=== PATIENT | female | born 1950 | race Caucasian/White ===

== ENCOUNTER 2018-11-02 18:32 | Observation (INO) | payer MEDICARE ==
--- NOTE | 2018-11-02 18:59 | RAD ---
CHEST ONE VIEW: 11/02/18 INDICATION: Cough and runny nose. COMPARISON: Prior exam dated 12/13/16. FINDINGS: There is stable cardiomegaly. Lungs are clear. No pleural effusions or pneumothorax is evident. No ac mady osseous abnormalities. IMPRESSION: No acute abnormality. POS: [facility]
[2018-11-02 19:26] LABS: #Basophils 0.1 thou/uL (0.0-0.2); #Eosinphils 0.1 thou/uL (0.0-0.7); #Lymphocytes 4.2 thou/uL (1.20-3.40); #Monocytes 0.6 thou/uL (0.11-0.59); #Neutrophils 7.8 thou/uL (1.40-6.50); %Basophils 0.8 % (0.0-1.0); %Eosinophils 0.9 % (0.0-10.0); %Lymphocytes 32.9 % (21.0-51.0); %Monocytes 4.9 % (0.0-10.0); %Neutrophils 60.4 % (42.0-75.0); Hemoglobin 16.1 g/dL (12.0-16.0); Mean Corpuscular Hemoglobin 30.2 pg (27.0-31.0); Mean Corpuscular Volume 94.3 fL (78.0-98.0); Mean Platelet Volume 9.9 fL (7.4-10.4); Platelet Count 243 thou/uL (130-400); RBC Distribution Width 13.1 % (11.5-14.5); Red Blood Cell (RBC) Count 5.34 mill/uL (4.20-5.40); White Blood Cell (WBC) Count 12.8 thou/uL (4.8-10.8)
[2018-11-02] MEDS ORDERED: Ondansetron PF 4 MG/2 ML Vial ONE (19:42)
[2018-11-02 19:49] LABS: ALT (SGPT) 21 U/L (8-55); AST (SGOT) 19 U/L (5-34); Albumin 4.3 g/dL (3.4-4.8); Alkaline Phosphatase 123 U/L (40-150); Anion Gap 16 mmol/L (10-20); BUN (Urea Nitrogen) 9 mg/dL (9.8-20.1); Bilirubin, Total 0.4 mg/dL (0.2-1.2); Calc. Creatinine Clearance 0 mL/min (70-130); Calcium 9.9 mg/dL (7.8-10.44); Carbon Dioxide 22 mmol/L (23-31); Chloride 104 mmol/L (98-107); Estimated GFR-MDRD 61; Globulin 3.1 g/dL (2.4-3.5); Glucose 305 mg/dL (80-115); Protein, Total 7.4 g/dL (6.0-8.3); Sodium 138 mmol/L (136-145)
--- NOTE | 2018-11-02 20:25 | CT ---
CT OF THE BRAIN WITHOUT CONTRAST: 11/02/18 INDICATION: History of dizziness. COMPARISON: None. FINDINGS: The septum pellucidum and third ventricle are midline. There is remote appearing lacunar infarct invo lving the right cerebellar hemisphere on image 6 of series 2. There is suspected Virchow-Christophe space involving the inferior aspect of the right globus pallidus. No definite acute infarct, hemorrhage, o r hydrocephalus is present. Skull and extracranial soft tissues appear within normal limits. IMPRESSION: 1. Remote appearing lacunar infarct involving the right inferior cerebellar hemisphere. 2. No acute intracranial abnormality. POS: [facility]
[2018-11-02] MEDS ORDERED: Aspirin Chewable 81 MG TAB ONE (21:04)
[2018-11-02] MEDS ORDERED: Meclizine HCl 25 MG TAB ONE (21:35)
[2018-11-02] MEDS ORDERED: Non-Formulary Item 1 EACH (Ipratropium/Albuterol Sulfate [Combivent Respimat] 1 PUFF) INH PRN (22:34)
[2018-11-02 22:57] LABS: Troponin I Less than 0.010 ng/mL (< 0.028)
--- NOTE | 2018-11-02 23:57 | HP ---
PRIMARY CARE PHYSICIAN: Dr. Edward. CHIEF COMPLIANT: Dizziness and nausea for some time. HISTORY OF PRESENT ILLNESS: The patient is a 68-year-old female, name Ms. Nadia Kinney, with past medical history of coronary artery disease, status post stenting; hypertension; diabetes; COPD, who presents to the emergency department for having feeding output, dizziness, and then also having nausea, which has been worsening since Tuesday. The patient reports feeling of dizziness has been going on for a while and she has been trying to get into her primary care physician. The patient called her primary care physician and was told to come to the ER. The patient denies any falls, but reports that whenever she moves or when she tries to get up, she feels as if she is spinning. The patient denies any lightheadedness. The patient reports that she is being having feeling of nausea and has not been able to take her medications. The patient has not taken her blood pressure medication or her diabetes medication. 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 Ayon and she saw him last in 2015 or 2016. The patient at this point denies any chest pain, shortness of breath, abdominal pain, nausea, or vomiting. The patient also reported that she has been having these headaches on and off. MEDICATIONS: The patient's current medication includes: 1. Hydrochlorothiazide. 2. Simvastatin. 3. Glyburide. 4. Metformin. 5. Furosemide. 6. Lisinopril. 7. Trazodone. 8. Plavix. 9. Amlodipine. 10. Carvedilol. 11. Amitriptyline. 12. Ranitidine. 13. Loratadine. PAST MEDICAL HISTORY: Includes: 1. Diabetes. 2. Hypertension. 3. Coronary artery disease with stenting and acid reflux. ALLERGIES: DILAUDID. FAMILY HISTORY: Includes mother having heart disease. SOCIAL HISTORY: The patient smokes 1 to 2 pack of cigarettes per day. Denies any alcohol or illicit drugs. PAST SURGICAL HISTORY: Includes cardiac stent and history of hysterectomy. REVIEW OF SYSTEMS: A 10-point review of systems negative other than mentioned in the HPI. PHYSICAL EXAMINATION: VITAL SIGNS: Blood pressure 177/92, pulse 67, respirations 16, 99% O2 saturation on room air, temperature 98.6. CONSTITUTIONAL: The patient is alert and does not appear to be in any acute distress. HEAD: Atraumatic. EARS AND NOSE: No discharge or bleeding noted. MOUTH: No exudate noted. NECK: No lymphadenopathy noted. CARDIOVASCULAR: Regular rate and rhythm. No murmur, rubs, or gallops. RESPIRATION: Clear bilaterally. No wheezes heard. ABDOMEN: Soft and nontender. Bowel sounds are positive. EXTREMITIES: No edema noted. NEUROLOGIC: Cranial nerve 2 through 12 grossly intact and strength 5/5 bilaterally. Sensation intact in all four extremities. SKIN: Mild rash noted on her lower extremity, does seem to be excoriation. LABORATORY DATA: White blood cell count 12.8, hemoglobin 16.1, hematocrit 50.4, platelets 243. Chemistry; sodium 138, potassium 4, chloride 104, carbon dioxide 22, BUN 9, creatinine 0.92, glucose 305. Troponin negative. BNP 92.6. IMAGING STUDIES: EKG per ER, no ST-segment elevation noted. The patient's chest x-ray appeared to be negative for any acute abnormalities. CT head of the brain. Impression, remote appearing lacunar infarct involving the right inferior cerebellar hemisphere. No acute intracranial abnormalities noted. ASSESSMENT AND PLAN: 1. Dizziness. The patient's dizziness appeared to be peripheral in etiology suspect benign paroxysmal positional vertigo. Central neurological etiology could not be ruled out given the finding on the CT brain. CT brain negative for any acute CVA . The patient will be admitted for TIA workup. We will order MRI of the brain, echocardiogram, and ultrasound carotid, PT/OT ordered. We will continue diet as the patient has been tolerating diet. The patient was given aspirin in the ER, will continue aspirin and Plavix. The patient was given aspirin in the ER. The patient is already on Plavix. The patient is not a candidate for tPA at this point given the timeline of her symptoms. We will continue meclizine p.r.n. for her dizziness. 2. Accelerated hypertension. The patient's blood pressure on arrival was 240/86 likely due to noncompliance of her medications as she has not been taking her blood pressure medications. The patient's blood pressure was treated in the ER and her repeat blood pressure was 177/92. We will allow for permissive hypertension at this point, trying to rule out TIA. 3. Hyperglycemia with diabetes. The patient's blood glucose 300 on arrival likely due to not taking her medications at home. We will start SSI, check A1c, lipid panel and TSH in the morning. 4. Coronary artery disease with history of stenting. Continue home medications including statin and Plavix. 5. Leukocytosis. Likely reactive. Trend. Does not appear to be infectious on admission. 6. The patient is DNR. The patient's code status discussed, son present at bedside. She agreed that she wanted to be DNR. Paperwork completed. 7. Medical power of employment attorney: The patient will like her sister to be the medical power of employment attorney. 8. DVT prophylaxis addressed. Job ID: [id number] MTDD
[2018-11-03] MEDS ORDERED: Ondansetron ODT 4 MG TAB SL PRN (01:21)
[2018-11-03] MEDS ORDERED: Sodium Chloride 0.9% 1,000 ML IV SCH (01:21)
[2018-11-03] MEDS ORDERED: Acetaminophen 325 MG TAB PO PRN (01:21)
[2018-11-03] MEDS ORDERED: Ondansetron PF 4 MG/2 ML Vial IVP PRN (01:21)
[2018-11-03 01:54] VITALS: BMI 38.9
[2018-11-03] MEDS ORDERED: Meclizine HCl 12.5 MG TAB PO PRN (01:55)
[2018-11-03 02:50] LABS: Troponin I Less than 0.010 ng/mL (< 0.028)
[2018-11-03] MEDS ORDERED: Dextrose 5% in Water 1,000 ML IV PRN (06:31)
[2018-11-03] MEDS ORDERED: Dextrose 50% Abboject 50 ML SYRINGE IVP PRN (06:31)
[2018-11-03] MEDS: Insulin Regular 300 UNITS/3 ML VIAL SC PRN ×3 (06:40→17:50)
[2018-11-03 07:47] LABS: #Basophils 0.1 thou/uL (0.0-0.2); #Eosinphils 0.2 thou/uL (0.0-0.7); #Lymphocytes 4.7 thou/uL (1.20-3.40); #Monocytes 0.7 thou/uL (0.11-0.59); %Basophils 0.8 % (0.0-1.0); %Eosinophils 1.2 % (0.0-10.0); %Lymphocytes 36.8 % (21.0-51.0); %Monocytes 5.8 % (0.0-10.0); %Neutrophils 55.4 % (42.0-75.0); Hemoglobin 15.7 g/dL (12.0-16.0); Mean Corpuscular HGB CONC 32.4 g/dL (32.0-36.0); Mean Corpuscular Hemoglobin 30.8 pg (27.0-31.0); Mean Platelet Volume 9.4 fL (7.4-10.4); Platelet Count 230 thou/uL (130-400); RBC Distribution Width 13.1 % (11.5-14.5); White Blood Cell (WBC) Count 12.7 thou/uL (4.8-10.8)
[2018-11-03 08:08] LABS: Cardiac Risk 5.6 (Less than 4.5)
[2018-11-03 08:09] LABS: ALT (SGPT) 22 U/L (8-55); AST (SGOT) 16 U/L (5-34); Alkaline Phosphatase 115 U/L (40-150); Anion Gap 14 mmol/L (10-20); BUN (Urea Nitrogen) 11 mg/dL (9.8-20.1); Bilirubin, Total 0.5 mg/dL (0.2-1.2); Calc. Creatinine Clearance 104 mL/min (70-130); Calcium 9.4 mg/dL (7.8-10.44); Carbon Dioxide 25 mmol/L (23-31); Chloride 103 mmol/L (98-107); Estimated GFR-MDRD 68; Globulin 2.9 g/dL (2.4-3.5); Glucose 229 mg/dL (80-115); Potassium 3.8 mmol/L (3.5-5.1); Protein, Total 6.9 g/dL (6.0-8.3); Sodium 138 mmol/L (136-145)
[2018-11-03] MEDS ORDERED: Aspirin 325 MG TAB PO SCH (09:00)
[2018-11-03] MEDS ORDERED: Prevnar 13-Val Conj/PF 0.5 ML SYRINGE IM ONE (09:00)
[2018-11-03] MEDS ORDERED: Famotidine/PF 20 mg/2ml Vial SLOW IVP SCH (09:00)
--- NOTE | 2018-11-03 09:55 | ULT ---
CAROTID ULTRASOUND WITH COLLIER SCALE AND DOPPLER DUPLEX COLOR FLOW IMAGING SPECTRAL ANALYSIS PERFORMED: DATE: 11/03/18 CLINICAL INDICATION: Possible TIA, stroke. FINDINGS: There is scattered mild atherosclerotic calcification of the carotid arteries. PEAK SYSTOLIC VELOCITY (CM/S): Right CCA 65 Left CCA 66 Right ICA 57 Left ICA 83 There is antegrade flow within the visualized bilateral vertebral arteries. IMPRESSION: 1. No hemodynamically significant stenosis of the right internal carotid artery. 2. No hemodynamically significant stenosis of the left internal carotid artery. POS: [facility]
[2018-11-03] MEDS: Clopidogrel Bisulfate 75 MG TAB PO SCH (10:10)
[2018-11-03] MEDS: Aspirin 81 mg Enteric Coated Tablet PO SCH (10:10)
--- NOTE | 2018-11-03 11:50 | MRI ---
BRAIN MRI WITHOUT CONTRAST: Indication: TIA, dizziness. FINDINGS: There is no acute territorial infarction, mass effect, or midline shift. No parenchymal hemorrhagic s usceptibility. There is mild chronic ischemic disease involving the cerebral white matter. There is a focal T2 hyperintense FLAIR hypointense oval signal alteration at the inferior right lenti form nucleus which may relate to perivascular space versus lacunar infarction. There is a partially e mpty sella. Minimal mucosal thickening is seen within the paranasal sinuses and there is trace right mastoid fluid. IMPRESSION: 1. No acute intracranial abnormalities. 2. Mild chronic ischemic disease of the cerebral white matter. POS: [facility]
--- NOTE | 2018-11-03 15:43 | PDOC.PN ---
- Subjective Encounter Start Date: 11/03/18 Encounter Start Time: 15:40 Subjective: Patient states she continues with mild dizziness on occasion when standing -: it has gotten significantly better. Reports sinus congestion thats improved -: Denies any headaches. Complains of diarrhea x 2, each time after eating. She states this is chronic for her. Often suffers from diarrhea and diverticulitis. At present she denies any abdominal pain. No bloody stools. Denies any fevers or chills. Reports feeling sob with exertion and states her PCP was primarily concerned about her heart and that was the reason why she advised her to come to the ED. The patient denies any chest pain at present or since admission. She is known to Dr. Ayon but has no follow-up scheduled at this time. Per previous records she has two vessel CAD with previous stenting. Her BNP is 92.6. - Objective Resuscitation Status - Order Detail: 11/02/18 22:36 Resuscitation Status Routine Resuscitation Status: DNAR: NO Resuscitation Discussed with: Pt and son. Pt understood and request DNAR Vital Signs & Weight: Vital Signs (12 hours) Temp Pulse Resp BP Pulse Ox 11/03/18 11:36 97.5 F L 77 20 148/65 H 97 11/03/18 11:24 97.5 F L 77 20 148/65 H 97 11/03/18 07:35 97.5 F L 61 18 190/79 H 94 L 11/03/18 04:00 98.4 F 68 16 204/84 H 90 L Weight Weight 220 lb I&O: 11/02/18 11/03/18 11/04/18 06:59 06:59 06:59 Intake Total 500 250 Balance 500 250 Result Diagrams: 11/03/18 07:32 11/03/18 07:32 Additional Labs: Accuchecks 11/03/18 11/03/18 10:42 06:19 POC Glucose 242 H 241 H Phys Exam - Physical Examination Constitutional: NAD HEENT: PERRLA, moist MMs, sclera anicteric, oral pharynx no lesions No nystagmus, EOM normal. Neck: no JVD, supple, full ROM Respiratory: clear to auscultation bilateral Cardiovascular: RRR Gastrointestinal: soft, non-tender, no distention, positive bowel sounds Musculoskeletal: no edema, pulses present Neurological: normal sensation, moves all 4 limbs Psychiatric: normal affect, A&O x 3 Skin: no rash, normal turgor Dx/Plan (1) Diverticulosis Code(s): K57.90 - DVRTCLOS OF INTEST, PART UNSP, W/O PERF OR ABSCESS W/O BLEED Status: Acute (2) Chronic diarrhea Code(s): K52.9 - NONINFECTIVE GASTROENTERITIS AND COLITIS, UNSPECIFIED Status : Acute (3) Coronary artery disease Code(s): I25.10 - ATHSCL HEART DISEASE OF [place] CORONARY ARTERY W/O ANG PCTRS Status: Chronic (4) Diabetes type 2, controlled Code(s): E11.9 - TYPE 2 DIABETES MELLITUS WITHOUT COMPLICATIONS Status: Chronic (5) Hypertension Code(s): I10 - ESSENTIAL (PRIMARY) HYPERTENSION Status: Chronic (6) Obesity (BMI 30-39.9) Code(s): E66.9 - OBESITY, UNSPECIFIED Status: Chronic - Plan cont current plan of care Improvement with vertigo. Tolerating PO intake. -: MRI Brain with no acute changes and Carotid US negative. -: SOB on exertion, worse from baseline. Awaiting Echo. -: BNP 92.6, Troponin neg x 3 on admission. -: Patient for discharge on Antivert and increase Coreg 6.25 mg daily. Discharge pending results of Echo. Patients case discussed with Dr. Eldridge.
[2018-11-03] MEDS ORDERED: Carvedilol 3.125 MG TAB PO SCH (17:00)
[2018-11-03] MEDS: Carvedilol 6.25 MG TAB PO SCH (17:49)
[2018-11-03 19:31] LABS: Bilirubin Negative (Negative); Blood, Urine Negative (Negative); Clarity CLEAR (Clear); Glucose, Urine (Dipstick) 100 mg/dL (Negative); Leukocyte Negative (Negative); Nitrite Negative (Negative); Protein, Urine (Dipstick) Negative (Neg-Trace); Specific Gravity, Urine 1.013 (1.002-1.036); Urobilinogen 0.2 mg/dL (0.2-1.0); pH, Urine 5.5 (5.0-9.0)
[2018-11-03 19:33] LABS: Bacteria/HPF None Seen HPF (None Seen); Hyaline Casts/LPF 0-3 HYALINE CAST LPF (0-3 Hyaline); RBC/HPF 0-3 HPF (0-3); Squamous Epithelial 0-3 HPF (0-3); WBC/HPF 0-3 HPF (0-3)
[2018-11-03] MEDS: Famotidine 20 MG TAB PO SCH (20:21)
[2018-11-03] MEDS: Meclizine HCl 12.5 MG TAB PO SCH (20:21)
[2018-11-04 05:24] LABS: #Basophils 0.1 thou/uL (0.0-0.2); #Eosinphils 0.3 thou/uL (0.0-0.7); #Lymphocytes 3.8 thou/uL (1.20-3.40); #Monocytes 0.8 thou/uL (0.11-0.59); %Lymphocytes 38.2 % (21.0-51.0); %Monocytes 7.9 % (0.0-10.0); %Neutrophils 49.8 % (42.0-75.0); Hemoglobin 14.7 g/dL (12.0-16.0); Mean Corpuscular HGB CONC 32.1 g/dL (32.0-36.0); Mean Corpuscular Volume 96.4 fL (78.0-98.0); Mean Platelet Volume 9.1 fL (7.4-10.4); Platelet Count 198 thou/uL (130-400); Red Blood Cell (RBC) Count 4.74 mill/uL (4.20-5.40)
[2018-11-04 05:51] LABS: ALT (SGPT) 23 U/L (8-55); AST (SGOT) 21 U/L (5-34); Albumin 3.6 g/dL (3.4-4.8); Alkaline Phosphatase 105 U/L (40-150); Anion Gap 13 mmol/L (10-20); BUN (Urea Nitrogen) 8 mg/dL (9.8-20.1); Bilirubin, Total 0.5 mg/dL (0.2-1.2); Calc. Creatinine Clearance 117 mL/min (70-130); Calcium 9.2 mg/dL (7.8-10.44); Carbon Dioxide 22 mmol/L (23-31); Chloride 105 mmol/L (98-107); Estimated GFR-MDRD 77; Globulin 2.9 g/dL (2.4-3.5); Glucose 202 mg/dL (80-115); Protein, Total 6.5 g/dL (6.0-8.3); Sodium 136 mmol/L (136-145)
[2018-11-04] MEDS: Insulin Regular 300 UNITS/3 ML VIAL SC PRN (06:06)
[2018-11-04 07:43] VITALS: TEMP 98.2
[2018-11-04] MEDS ORDERED: glyBURIDE 5 MG TAB PO SCH (08:00)
[2018-11-04] MEDS ORDERED: metFORMIN 500 MG TAB PO SCH (08:00)
[2018-11-04] MEDS: Famotidine 20 MG TAB PO SCH (08:31)
[2018-11-04] MEDS: Clopidogrel Bisulfate 75 MG TAB PO SCH (08:31)
[2018-11-04] MEDS: Carvedilol 6.25 MG TAB PO SCH (08:31)
[2018-11-04] MEDS: Aspirin 81 mg Enteric Coated Tablet PO SCH (08:32)
[2018-11-04] MEDS: Meclizine HCl 12.5 MG TAB PO SCH (08:32)
[2018-11-04] MEDS ORDERED: Amlodipine 10 MG TAB PO SCH (09:00)
[2018-11-04] MEDS ORDERED: Amitriptyline HCl 10 MG TAB PO SCH ×2 (09:00)
[2018-11-04] MEDS ORDERED: Lisinopril 20 MG TAB PO SCH (09:00)
[2018-11-04] MEDS ORDERED: Furosemide 20 MG TAB PO SCH (09:00)
[2018-11-04] MEDS ORDERED: hydrALAZINE 25 MG TAB PO SCH (12:00)
[2018-11-04 12:35] VITALS: BP 163/68
--- NOTE | 2018-11-04 14:06 | EKG ---
Test Reason : WEAKNESS,SOB Blood Pressure : / mmHG Vent. Rate : 076 BPM Atrial Rate : 076 BPM P-R Int : 142 ms QRS Dur : 088 ms QT Int : 422 ms P-R-T Axes : 058 054 048 degrees QTc Int : 474 ms Normal sinus rhythm Possible Left atrial enlargement Borderline ECG Confirmed by ARIA VILLA M.D. ([id number]), purchasing expeditor RADHA POPE ([id number]) on 11/04/2018 2:05:01 PM Referred By: Confirmed By:ARIA VILLA M.D.
[2018-11-04] MEDS ORDERED: Non-Formulary Item 1 EACH (Simvastatin [Zocor] 10 MG) PO SCH (21:00)
[2018-11-04] MEDS ORDERED: traZODone HCl 50 MG TAB PO SCH (21:00)
[2018-11-04] MEDS ORDERED: Non-Formulary Item 1 EACH (Trazodone [Trazodone] 100 MG) PO SCH (21:00)
[2018-11-04] MEDS ORDERED: Simvastatin 5 MG TAB PO SCH (21:00)
--- NOTE | 2018-11-06 07:22 | DIS ---
DATE OF ADMISSION: 11/03/2018 DATE OF DISCHARGE: 11/04/2018 DISCHARGE DIAGNOSES: 1. Benign positional vertigo. 2. Hypertension. 3. Nausea. 4. Coronary artery disease. 5. Type 2 diabetes. CONSULTING PHYSICIANS: None. HOSPITAL COURSE: Ms. Kinney is a pleasant 68-year-old woman, who presented initially with complaints of dizziness, which seemed to be worse with ambulation. The patient was started on Antivert and throughout her stay had noted improvement with her dizziness. On the day of discharge, it was almost completely settled. She did undergo a TIA workup including a CT of the brain done on admission, which showed a remote-appearing lacunar infarct involving the right inferior cerebral hemisphere. No acute intracranial abnormality. She underwent a carotid Doppler study, which showed no hemodynamically significant stenosis of either the right or left internal carotid arteries. A brain MRI was also done showing no acute intracranial abnormalities. There was mild chronic ischemic disease with cerebral white matter present. The patient had notably elevated blood pressure in the 190s/80s. She was started on her home medications and had improvement in her blood pressure. At the time of discharge, her blood pressure was repeated and again was elevated. At that time, we decided to start hydralazine and she was given 25 mg p.o. with plans to continue 25 mg p.o. twice daily for continued management of her blood pressure. It was at that time that the patient reported she was already on hydralazine at home; however, failed to mention this at the time of admission; therefore, this was never added to her list of current medications. She normally takes hydralazine 50 mg by mouth twice daily and we will continue to do so. She reports having longstanding dyspnea on exertion and is awaiting a followup with Dr. Ayon. She was scheduled to undergo an echocardiogram as part of her TIA workup. Given the fact that her symptoms have significantly improved and have been associated with sinus congestion, it was felt her symptoms were not associated with a TIA. She has no active chest pain; therefore, Dr. Eldridge felt she was medically cleared for discharge home with plans for her to follow up with Dr. Ayon as an outpatient. We have increased her Coreg to 6.25 mg daily. She will undergo her echo as planned, but will not need to wait for results in order to go home. REVIEW OF SYSTEMS: At this time, the patient reports having minimal nausea. She states that it has been controlled on Zofran and is requesting to have this prescribed. She denies having any vomiting. Has been tolerating food and liquids without any difficulties. She reports having regular bowel movements. She has had a loose stool after each meal, but she states that it is chronic for her. She denies having any blood in her stools. Denies having any dizziness at present. Has been ambulating without difficulty. No chest pain, palpitations, or shortness of breath. She has an occasional dry cough. Denies having any hemoptysis. No urinary symptoms. All other review of systems are negative. PHYSICAL EXAMINATION: GENERAL: The patient appears well-developed, well-nourished, and is in no acute distress. VITAL SIGNS: Temperature 98.2, pulse 63, respirations 20, O2 saturation 94% on room air, blood pressure 163/68. HEENT: Normocephalic and atraumatic. Pupils are equal, round, reactive to light. Sclerae are without icterus. Oropharynx is clear. Extraocular movements normal. No nystagmus present. NECK: Supple. No lymphadenopathy. LUNGS: Clear to auscultation bilaterally without wheezes, rales, or rhonchi. CARDIAC: Regular rate and rhythm without audible murmurs, rubs, or gallops. ABDOMEN: Soft, nontender, nondistended. Normoactive bowel sounds present. EXTREMITIES: No clubbing, cyanosis, or edema. NEUROLOGIC: Alert and oriented x3. SKIN: Without rash or jaundice. LABORATORY DATA: White blood count 10, hemoglobin 14.7, hematocrit 45.7, platelets 198. Sodium 136, potassium 4.0, creatinine 0.75, GFR 77, glucose 202. LFTs unremarkable. Her triglycerides are elevated at 256. Urinalysis unremarkable. IMAGING DATA: As mentioned above in the hospital course. DISCHARGE MEDICATIONS: 1. The patient was given a prescription for carvedilol, which we have increased to 6.25 mg p.o. twice daily. 2. I have also provided a prescription for meclizine 12.5 mg p.o. 3 times a day. 3. She was also given a prescription for Zofran ODT 4 mg p.o. every 4 hours as needed for nausea and vomiting. 4. She will resume her normal dose of hydralazine 50 mg by mouth twice daily. The patient was otherwise instructed to resume all other home medications. CONDITION: Stable at discharge. ACTIVITY: As tolerated. DIET: Heart healthy. FOLLOWUP: The patient will follow up with her primary care physician within 1 week. She will also follow up with Dr. Ayon for further workup and management of her longstanding dyspnea on exertion. DISPOSITION: The patient medically cleared for discharge home today on November 04, 2018. The patient's case was discussed with Dr. Eldridge, who agrees with the plan of care as described above. Job ID: [id number]
== END 2018-11-04 13:05 | disposition home or self-care (01) ==
LOC: ERS 18:32 → 2SE 11-03 00:58
PROVIDERS: ADMIT Family Medicine; ATTEND Family Medicine
DX: H81.10 Benign paroxysmal vertigo, unspecified ear (principal); I10 Essential (primary) hypertension; R11.0 Nausea; I25.10 Atherosclerotic heart disease of native coronary artery without angina pectoris; E11.65 Type 2 diabetes mellitus with hyperglycemia; J44.9 Chronic obstructive pulmonary disease, unspecified; K21.9 Gastro-esophageal reflux disease without esophagitis; F17.210 Nicotine dependence, cigarettes, uncomplicated; E66.9 Obesity, unspecified; Z68.39 Body mass index [BMI] 39.0-39.9, adult; K57.90 Diverticulosis of intestine, part unspecified, without perforation or abscess without bleeding; K52.9 Noninfective gastroenteritis and colitis, unspecified; Z95.5 Presence of coronary angioplasty implant and graft; Z88.8 Allergy status to other drugs, medicaments and biological substances; Z88.5 Allergy status to narcotic agent; Z90.710 Acquired absence of both cervix and uterus; Z79.84 Long term (current) use of oral hypoglycemic drugs; Z79.02 Long term (current) use of antithrombotics/antiplatelets; Z79.899 Other long term (current) drug therapy
CPT/HCPCS: 70450; 70551; 71045; 80053 ×3; 80061; 81001; 82962 ×2; 83880; 84484 ×3; 85025 ×3; 87040; 90662; 93005; 93306; 93880; 96374; 96375; 97139 ×2; 99285; G0008; G0378 ×2; 36415; 36416; 90471; J1815; J2405; J8597; S0028

== ENCOUNTER 2020-08-16 13:01 | Inpatient (IN) | payer MEDICARE ==
[2020-08-16 13:33] LABS: #Basophils 0.1 thou/uL (0.0-0.2); #Eosinphils 0.1 thou/uL (0.0-0.7); #Lymphocytes 2.8 thou/uL (1.20-3.40); #Monocytes 0.6 thou/uL (0.11-0.59); #Neutrophils 13.3 thou/uL (1.40-6.50); %Basophils 0.3 % (0.0-1.0); %Eosinophils 0.7 % (0.0-10.0); %Lymphocytes 16.7 % (21.0-51.0); %Monocytes 3.5 % (0.0-10.0); %Neutrophils 78.8 % (42.0-75.0); Hemoglobin 15.1 g/dL (12.0-16.0); Mean Corpuscular HGB CONC 32.5 g/dL (32.0-36.0); Mean Corpuscular Hemoglobin 29.6 pg (27.0-31.0); Platelet Count 188 thou/uL (130-400); RBC Distribution Width 14.4 % (11.5-14.5); Red Blood Cell (RBC) Count 5.11 mill/uL (4.20-5.40); White Blood Cell (WBC) Count 16.8 thou/uL (4.8-10.8)
[2020-08-16 13:56] LABS: ALT (SGPT) 14 U/L (8-55); AST (SGOT) 13 U/L (5-34); Albumin 4.1 g/dL (3.4-4.8); Alkaline Phosphatase 107 U/L (40-110); Anion Gap 16 mmol/L (10-20); BUN (Urea Nitrogen) 14 mg/dL (9.8-20.1); Bilirubin, Total 0.3 mg/dL (0.2-1.2); Calc. Creatinine Clearance 0 mL/min (70-130); Calcium 9.6 mg/dL (7.8-10.44); Carbon Dioxide 24 mmol/L (23-31); Chloride 105 mmol/L (98-107); Globulin 2.9 g/dL (2.4-3.5); Glucose 220 mg/dL (80-115); Potassium 4.4 mmol/L (3.5-5.1); Sodium 141 mmol/L (136-145)
[2020-08-16 14:17] LABS: CKMB 2.5 ng/mL (0-6.6)
--- NOTE | 2020-08-16 14:43 | RAD ---
AP CHEST: 08/16/20 HISTORY: Chest pain. COMPARISON: 11/02/18. FINDINGS/IMPRESSION: Borderline cardiomegaly is stable. Mild vascular engorgement stable. I cannot exclude hazy infiltrate in the right lower lung with interstitial prominence. No confluent consolidation and no significant effusion. No other interval change. POS: [facility]
[2020-08-16] MEDS ORDERED: cefTRIAXone\\ROCEPHIN 2 GM VIAL ONE (15:23)
[2020-08-16] MEDS ORDERED: Azithromycin 250 MG TAB ONE (15:23)
[2020-08-16] MEDS ORDERED: methylPREDNISolone Sod Succ/PF 125 MG/2 ML VIAL ONE (15:23)
--- NOTE | 2020-08-16 16:21 | PDOC.HHP ---
Hospitalist HPI - History of Present Illness History of Present Illness: ADMISSION DATE: 08/16/2020 TIME OF ASSESSMENT: 1540 PRIMARY CARE PHYSICIAN: Cheyanne CHIEF COMPLAINT: Chest pain and shortness of breath HPI: The patient is a 70-year-old female past medical history of cardiac stent placement, COPD, CHF, diabetes type 2. She presents to the ER today via [facility] for extreme right arm pain that radiated to her right chest. She took 3 sublingual nitrogen at home which did not help with her pain. EMS did give her topical nitro along with morphine and this helped resolve the pain. She stated that when the pain would occur today it was a 10 out of 10. The pain would begin in her right bicep and her arm would go numb and then it would radiate to the right side of her chest which felt like a pressure and crushing sensation. She felt nauseated and clammy during this time. Patient states that today the pain did not go away with nitro, however, she has had this pain intermittently for weeks. Usually she will take 1 nitro and the pain will go away. Patient does express that she does have some noncompliance with her fluid pill as it interferes with her daily life activities at time. She does states she is compliant with her other medications. She is still a multiple pack per day smoker. At home she normally has no oxygen requirements with her COPD. She states her pulse ox is regularly 92% on room air. Patient also does endorse exertional dyspnea for the past month. She denies fevers, body aches, contact with sick persons, orthopnea. ED COURSE: Vital Signs: Blood pressure 143/53, pulse 51, respiratory rate 16, temp 98.4, O2 saturation 90% on 2 L, room air saturation 87% Today in the ER they completed lab work and a chest x-ray. She was administered Proventil 2 inhalation, azithromycin 500 mg oral, methylprednisolone 125 mg IV, ceftriaxone 2 g IV. PAST MEDICAL HISTORY: Diabetes type 2, hypertension, diverticulitis, CHF, COPD, emphysema, depression PAST SURGICAL HISTORY: Cardiac stent x3, pins to left arm, hysterectomy SOCIAL HISTORY: Patient lives at home alone. Patient drinks very rarely and denies illicit drug use. Patient does endorse smoking multiple packs of cigarettes (2-3) per day for many years. FAMILY HISTORY: Mother with heart disease ALLERGIES: Dilaudid CURRENT MEDICATIONS: Patient unable to recall medications at this time, will work on reconciling medications with nursing Hospitalist ROS - Review of Systems Respiratory: reports: shortness of breath, SOB with excertion Cardiovascular: reports: chest pain, edema All other systems reviewed; all pertinent +/- noted in HPI/Subj - Exam General Appearance: NAD, awake alert Eye: PERRL ENT: normocephalic atraumatic Heart: RRR, no murmur, no gallops, no rubs, normal peripheral pulses Respiratory: normal chest expansion, rhonchi Gastrointestinal: soft, non-tender, non-distended, normal bowel sounds, no palpable masses Extremities: no cyanosis, no edema Neurological: no focal deficits Psychiatric: A&O x 3 Psychiatric - other findings: Pressured speech Hospitalist Results - Labs Result Diagrams: 08/16/20 13:23 08/16/20 13:23 Lab results: WBC 16.8 thou/uL (4.8-10.8) H 08/16/20 13:23 Hgb 15.1 g/dL (12.0-16.0) 08/16/20 13:23 Hct 46.5 % (36.0-47.0) 08/16/20 13:23 MCV 91.0 fL (78.0-98.0) 08/16/20 13:23 Plt Count 188 thou/uL (130-400) 08/16/20 13:23 Neutrophils % 78.8 % (42.0-75.0) H 08/16/20 13:23 Sodium 141 mmol/L (136-145) 08/16/20 13:23 Potassium 4.4 mmol/L (3.5-5.1) 08/16/20 13:23 Chloride 105 mmol/L (98-107) 08/16/20 13:23 Carbon Dioxide 24 mmol/L (23-31) 08/16/20 13:23 BUN 14 mg/dL (9.8-20.1) 08/16/20 13:23 Creatinine 0.77 mg/dL (0.6-1.1) 08/16/20 13:23 Glucose 220 mg/dL (80-115) H 08/16/20 13:23 Calcium 9.6 mg/dL (7.8-10.44) 08/16/20 13:23 Total Bilirubin 0.3 mg/dL (0.2-1.2) 08/16/20 13:23 AST 13 U/L (5-34) 08/16/20 13:23 ALT 14 U/L (8-55) 08/16/20 13:23 Alkaline Phosphatase 107 U/L (40-110) 08/16/20 13:23 CK-MB (CK-2) 2.5 ng/mL (0-6.6) 08/16/20 13:23 Troponin I 0.033 ng/mL (< 0.028) H 08/16/20 13:23 B-Natriuretic Peptide 82.8 pg/mL (0-100) 08/16/20 13:23 Serum Total Protein 7.0 g/dL (6.0-8.3) 08/16/20 13:23 Albumin 4.1 g/dL (3.4-4.8) 08/16/20 13:23 - EKG Interpretation EKG: Sinus rhythm 60 bpm - Radiology Interpretation Chest x-ray Status: image reviewed by me, report reviewed by me Additional Comment: Impression: Borderline cardiomegaly is stable. Mild vascular engorgement stable. Cannot exclude hazy infiltrate in the right lower lung with interstitial prominence. No confluent consolidation and no significant effusion. No other interval change. Hospitalist H&P A/P - Plan Plan: Chest pain Continue to monitor troponins Monitor on telemetry Start on long-acting nitrate, patient has been using nitro daily lately Consider outpatient does overnight and possibly consult cardiology in a.m. BNP 82.8, troponin 0.033 two more troponins pending COPD exacerbation with hypoxia Continue supplemental O2 as needed Can reassess in a.m. if O2 is still needed Continue antibiotics and IV steroids Hypertension Restart home medications once reconciled Monitor vital signs every 4 hours Diabetes mellitus type 2 Monitor Accu-Cheks AC at bedtime Mild sliding scale insulinmay change once medications are reconciled if she needs a higher scale Tobacco dependence Tobacco cessation counseling completed Nicotine patch ordered if desired CODE STATUS: DNR Patient has been DNR on previous hospital admissions and has discussed this with palliative care numerous times she states. Cesar Kuhn her son, who is her surrogate decision-maker, is at the bedside and verbalizes understanding. Patient and plan of care has been discussed and agreed upon by Dr. Eldridge
[2020-08-16] MEDS ORDERED: Dextrose 50% Abboject 50 ML SYRINGE SLOW IVP PRN (16:26)
[2020-08-16] MEDS ORDERED: Dextrose 5% in Water 1,000 ML IV PRN (16:26)
[2020-08-16] MEDS ORDERED: Nitroglycerin 0.4 MG TAB (25 Tab Bottle) SL PRN (16:32)
[2020-08-16] MEDS ORDERED: Aspirin 325 MG TAB PO SCH (16:45)
[2020-08-16 17:17] LABS: SARS-CoV-2 NAA Rapid Test Not Detected (NotDetected)
[2020-08-16 17:19] LABS: Troponin I 0.782 ng/mL (< 0.028)
--- NOTE | 2020-08-16 17:22 | CT ---
Exam: Head CT without contrast HISTORY: Pain COMPARISON: 11/02/2018 FINDINGS: Hemorrhage: No intraparenchymal hemorrhage or extra-axial hematoma. Brain parenchyma: Cortical vazquez-white matter differentiation is preserved. No mass effect or midline shift. Basilar cisterns are patent.Stable hypoattenuation inferior to the right lentiform nucleus which may represent a prominent perivascular space. Ventricular system: Ventricles and sulci are patent and symmetric. Calvarium: Intact. Sinuses and mastoid air cells: Adequate aeration. IMPRESSION: No acute intracranial process.
[2020-08-16] MEDS ORDERED: Aspirin 325 MG TAB ONE (18:17)
[2020-08-16 20:13] LABS: Troponin I 1.572 ng/mL (< 0.028)
[2020-08-16] MEDS ORDERED: Enoxaparin Sodium 100 MG/ML SYRINGE SC SCH (20:45)
[2020-08-16] MEDS ORDERED: methylPREDNISolone Sod Succ 40 MG VIAL ONE (20:46)
[2020-08-16] MEDS: methylPREDNISolone Sod Succ 40 MG VIAL IVP SCH (20:55)
[2020-08-16] MEDS ORDERED: Enoxaparin Sodium 100 MG/ML SYRINGE ONE ×2 (21:56→21:58)
[2020-08-16] MEDS ORDERED: Nitroglycerin 2% Ointment 1 INCH/1 GM Packet ONE (21:56)
[2020-08-16] MEDS: Nitroglycerin 2% Ointment 1 INCH/1 GM Packet TOP SCH (21:59)
[2020-08-16] MEDS ORDERED: Nitroglycerin 2% Ointment 1 INCH/1 GM Packet TOP SCH (22:00)
[2020-08-17 05:03] VITALS: BMI 33.6
[2020-08-17] MEDS: methylPREDNISolone Sod Succ 40 MG VIAL IVP SCH ×4 (05:19→18:31)
[2020-08-17] MEDS: Enoxaparin Sodium 100 MG/ML SYRINGE SC SCH ×3 (05:19→20:07)
[2020-08-17] MEDS ORDERED: FLU VACC QS2020-21(65YR UP)/PF 240 MCG/0.7 ML SYRINGE IM ONE (09:00)
[2020-08-17] MEDS: Nicotine 21 MG PATCH TD SCH (09:30)
[2020-08-17] MEDS: Nitroglycerin 2% Ointment 1 INCH/1 GM Packet TOP SCH ×2 (09:30→20:07)
[2020-08-17] MEDS: Azithromycin 250 MG TAB PO SCH (09:30)
[2020-08-17] MEDS ORDERED: Carvedilol 6.25 MG TAB PO SCH (09:45)
[2020-08-17] MEDS: Aspirin 81 mg Enteric Coated Tablet PO SCH (09:49)
[2020-08-17] MEDS ORDERED: Clopidogrel Bisulfate 75 MG TAB PO SCH (10:00)
[2020-08-17] MEDS: HumaLOG 300 UNITS/3 ML VIAL SC PRN ×3 (12:27→21:03)
--- NOTE | 2020-08-17 12:27 | CON ---
DATE OF CONSULTATION: HISTORY OF PRESENT ILLNESS: The patient is a pleasant 70-year-old woman with a long history of coronary artery disease. In 2019, the patient was seen for chest pain. She underwent cardiac catheterization. She was found to have a 90% lesion in a diagonal branch. The right coronary had a 50% stenosis and 70% stenosis. The patient subsequently had placement of a stent. The patient then re-presented in 2017 with chest pain. She once again underwent cardiac catheterization. She had underwent PTCA and stent placement of the right coronary artery and the left circumflex obtuse marginal branch. The patient also had stent placement into the right coronary artery. The patient was in her usual state of health when she developed right-sided chest discomfort. She took several nitroglycerin without resolution of her chest pain. The patient reports that she has been compliant with her medications. PAST MEDICAL HISTORY: 1. Coronary artery disease. 2. Hypertension. 3. Diabetes mellitus. 4. Diverticulitis. 5. COPD. PAST SURGICAL HISTORY: Hysterectomy and left arm surgery. SOCIAL HISTORY: Long history of tobacco abuse. She smokes 2 to 3 packs per day. FAMILY HISTORY: Strong family history of heart disease. ALLERGIES: DILAUDID. MEDICATIONS: 1. Aspirin 325 daily. 2. Nifedipine 60 mg b.i.d. 3. Zetia 10 daily. 4. Imdur 60 q.a.m. 5. Plavix 75 daily. 6. Coreg 6.25. 7. Torsemide 20 mg daily. 8. Zestril 20 b.i.d. 9. Zantac 1 tablet p.o. b.i.d. 10. Crestor 20 at bedtime. 11. Trazodone 100 mg at bedtime. REVIEW OF SYSTEMS: Ten-point system otherwise unremarkable. No history of easy bruising or bleeding. PHYSICAL EXAMINATION: GENERAL: Ill-appearing woman, in no acute distress. VITAL SIGNS: Blood pressure 177/75. NECK: No jugular venous distention. LUNGS: Decreased breath sounds bilateral. HEART: Regular rate and rhythm. Normal S1 and S2. No murmurs. ABDOMEN: Distended. EXTREMITIES: Showed no edema. VASCULAR: Radial pulses 2+. LABORATORY RESULTS: Sodium was 141, potassium 4.4, chloride 105, bicarbonate 24, BUN 14, and glucose was 220. Her troponin was 1.5. White blood cell count 16.8, hemoglobin 15.1, hematocrit 46.5, and platelets are 188. EKG normal sinus rhythm with a normal ECG. IMPRESSION AND PLAN: 1. Non-Q-wave myocardial infarction. 2. History of percutaneous transluminal coronary angioplasty and stent placed in the left circumflex and right coronary artery. 3. Diabetes mellitus. 4. Hypertension. 5. Obesity. 6. Tobacco abuse. This patient presents with a non-Q-wave myocardial infarction. From a cardiac standpoint, I will start on her home medications. The patient will continue on Lovenox. Further recommendations will follow during this hospitalization. Job ID: [id number] [facility]
[2020-08-17] MEDS: Carvedilol 6.25 MG TAB PO SCH (16:11)
[2020-08-17] MEDS: cefTRIAXone\\ROCEPHIN 2 GM in Sodium Chloride 0.9% 100 ML IVPB SCH (16:11)
--- NOTE | 2020-08-17 17:05 | PDOC.HOSPP ---
- Subjective Subjective: Patient was seen examined at bedside. No acute events overnight. Her troponin trending up. However, she denies chest pain at present. Her breathing has improved. No fever. - Objective Vital Signs & Weight: Vital Signs (12 hours) Temp Pulse Resp BP BP Pulse Ox 08/17/20 16:05 97.4 F L 65 18 151/86 H 93 L 08/17/20 14:39 58 L 16 93 L 08/17/20 12:21 168/71 H 08/17/20 11:04 98.3 F 70 20 194/82 H 93 L 08/17/20 10:37 63 16 95 08/17/20 07:53 94 L 08/17/20 07:14 64 18 177/75 H 94 L Weight Weight 196 lb I&O: 08/16/20 08/17/20 08/18/20 06:59 06:59 06:59 Intake Total 230 Balance 230 Result Diagrams: 08/16/20 13:23 08/16/20 13:23 Additional Labs: Accuchecks 08/17/20 08/17/20 08/16/20 12:13 06:40 22:04 POC Glucose 293 H 265 H 288 H Radiology Reviewed by me: Yes EKG Reviewed by me: Yes Hospitalist ROS - Medication Medications: Active Medications Generic Name Dose Route Start Last Admin Trade Name Freq PRN Reason Stop Dose Admin Albuterol/Ipratropium 3 ml 08/17/20 11:00 08/17/20 14:39 Ipratropium/Albuterol Sulfate 3 Ml Neb NEB 3 ml [id number] ÓSCAR Administration Aspirin 81 mg 08/17/20 09:00 08/17/20 09:49 Aspirin 81 Mg Enteric Coated Tablet PO 81 mg DAILY ÓSCAR Administration Azithromycin 500 mg 08/17/20 09:00 08/17/20 09:30 Azithromycin 250 Mg Tab PO 500 mg DAILY ÓSCAR Administration Carvedilol 6.25 mg 08/17/20 17:00 08/17/20 16:11 Carvedilol 6.25 Mg Tab PO 6.25 mg BID-WM ÓSCAR Administration Enoxaparin Sodium 100 mg 08/16/20 21:00 08/17/20 09:30 Enoxaparin Sodium 100 Mg/Ml Syringe SC 100 mg 0900,2100 ÓSCAR Administration Ceftriaxone Sodium 2 gm/ 100 mls @ 200 mls/hr 08/17/20 15:00 08/17/20 16:11 Sodium Chloride IVPB 100 mls 1500 ÓSCAR Administration Insulin Human Lispro 0 units 08/16/20 16:32 08/17/20 12:27 Humalog 300 Units/3 Ml Vial SC 4 unit .MILD SLIDING SCALE PRN Administration Mild Correctional Scale Methylprednisolone Sodium Succinate 40 mg 08/17/20 11:00 08/17/20 11:04 Methylprednisolone Sod Succ 40 Mg Vial IVP Not Given Q8H ÓSCAR Nicotine 21 mg 08/17/20 09:00 08/17/20 09:30 Nicotine 21 Mg Patch TD 21 mg DAILY ÓSCAR Administration Nitroglycerin 1 inch 08/16/20 21:00 08/17/20 09:30 Nitroglycerin 2% Ointment 1 Inch/1 Gm Packet TOP 1 inch BID ÓSCAR Administration - Exam General Appearance: NAD Eye: PERRL ENT: normocephalic atraumatic Neck: supple Heart: RRR, no murmur Respiratory: CTAB, no wheezes Gastrointestinal: soft, non-tender Extremities: no cyanosis, no clubbing Skin: normal turgor Neurological: cranial nerve grossly intact Musculoskeletal: normal tone, normal strength, no muscle wasting Psychiatric: normal affect, normal behavior, A&O x 3 Hosp A/P - Plan COPD exac --taper steroids, add nebs treatments, mucolytics. cont empiric IV abx. --COVID PCR neg NSTEMI --?type II, secondary to above. no chest pain --resume home meds. Pending further recommendations from primary geophysics teacher CAD with history of PCI --Resume home medications Hypertension-BP stable --Continue home medications Diabetes type 2 --Resume home meds, BG exacerbated d/t steroids Tobacco dependent disorder --Counseled, nicotine patch Dyslipidemia --Continue statin therapy
[2020-08-17] MEDS: guaiFENesin ER 600 MG TAB PO SCH (20:05)
[2020-08-17] MEDS: NIFEdipine XL 60 MG TAB PO SCH (20:06)
[2020-08-17] MEDS: Lisinopril 20 MG TAB PO SCH (20:06)
[2020-08-17] MEDS: traZODone HCl 50 MG TAB PO SCH (20:06)
[2020-08-17] MEDS: Gabapentin 400 MG CAP PO SCH (20:07)
[2020-08-17] MEDS: Famotidine 20 MG TAB PO SCH (20:07)
[2020-08-17] MEDS ORDERED: Non-Formulary Item 1 EACH (Ranitidine Hcl [Ranitidine Hcl] 150 MG Tablet) PO SCH (21:00)
[2020-08-17] MEDS ORDERED: Non-Formulary Item 1 EACH (Trazodone [Trazodone] 100 MG Tab) PO SCH (21:00)
[2020-08-18] MEDS: methylPREDNISolone Sod Succ 40 MG VIAL IVP SCH ×3 (03:07→21:11)
[2020-08-18] MEDS ORDERED: hydrALAZINE 20 MG/ML VIAL SLOW IVP SCH ×3 (03:45→16:45)
[2020-08-18 03:57] LABS: #Lymphocytes 2.6 thou/uL (1.20-3.40); #Monocytes 0.5 thou/uL (0.11-0.59); #Neutrophils 10.6 thou/uL (1.40-6.50); %Basophils 0.3 % (0.0-1.0); %Eosinophils 0.1 % (0.0-10.0); %Lymphocytes 18.6 % (21.0-51.0); %Monocytes 3.5 % (0.0-10.0); %Neutrophils 77.5 % (42.0-75.0); Hemoglobin 14.6 g/dL (12.0-16.0); Mean Corpuscular HGB CONC 31.4 g/dL (32.0-36.0); Mean Corpuscular Volume 92.2 fL (78.0-98.0); Mean Platelet Volume 9.8 fL (7.4-10.4); Platelet Count 195 thou/uL (130-400); RBC Distribution Width 14.4 % (11.5-14.5); Red Blood Cell (RBC) Count 5.04 mill/uL (4.20-5.40); White Blood Cell (WBC) Count 13.7 thou/uL (4.8-10.8)
[2020-08-18 04:20] LABS: Anion Gap 14 mmol/L (10-20); BUN (Urea Nitrogen) 20 mg/dL (9.8-20.1); Calc. Creatinine Clearance 85 mL/min (70-130); Calcium 9.2 mg/dL (7.8-10.44); Carbon Dioxide 24 mmol/L (23-31); Chloride 104 mmol/L (98-107); Glucose 383 mg/dL (80-115); Magnesium 2.2 mg/dL (1.6-2.6); Sodium 137 mmol/L (136-145)
[2020-08-18] MEDS: HumaLOG 300 UNITS/3 ML VIAL SC PRN ×3 (06:19→21:13)
[2020-08-18] MEDS ORDERED: Heparin 10,000 UNITS/ 10 ML VIAL ONE (06:47)
[2020-08-18] MEDS ORDERED: Fentanyl 100 MCG/2 ML VIAL ONE ×2 (07:19→11:37)
[2020-08-18] MEDS ORDERED: Midazolam HCl 2 mg/2 ml Vial ONE (07:19)
[2020-08-18] MEDS ORDERED: Bivalirudin 250 MG VIAL ONE (07:52)
[2020-08-18] MEDS ORDERED: Nitroglycerin 100MG/250ML BOT 250 ML ONE (08:03)
[2020-08-18] MEDS ORDERED: Sodium Chloride 0.9% 1,000 ML IV SCH (09:30)
[2020-08-18] MEDS ORDERED: hydrALAZINE 20 MG/ML VIAL ONE (10:27)
[2020-08-18] MEDS ORDERED: Atropine Sulfate 1 mg/10 ml Syringe ONE (11:30)
[2020-08-18] MEDS ORDERED: Iopamidol 370 76% 50 ML VIAL FS ONE (11:35)
[2020-08-18] MEDS ORDERED: Iopamidol 370 76% 100 ML VIAL ONE (11:35)
[2020-08-18] MEDS: Nitroglycerin 2% Ointment 1 INCH/1 GM Packet TOP SCH (12:05)
[2020-08-18] MEDS: Nicotine 21 MG PATCH TD SCH (12:05)
[2020-08-18] MEDS: Enoxaparin Sodium 100 MG/ML SYRINGE SC SCH (12:06)
[2020-08-18] MEDS: Alogliptin 25 MG TAB PO SCH ×2 (12:07→13:06)
[2020-08-18] MEDS: Carvedilol 6.25 MG TAB PO SCH (12:12)
[2020-08-18] MEDS: Lisinopril 20 MG TAB PO SCH ×2 (12:13→21:12)
[2020-08-18] MEDS: NIFEdipine XL 60 MG TAB PO SCH ×2 (12:14→21:11)
[2020-08-18] MEDS: Torsemide 20 MG TAB PO SCH (12:15)
[2020-08-18] MEDS: Ezetimibe 10 MG TAB PO SCH (13:06)
[2020-08-18] MEDS: Famotidine 20 MG TAB PO SCH ×2 (13:06→21:11)
[2020-08-18] MEDS: Azithromycin 250 MG TAB PO SCH (13:06)
[2020-08-18] MEDS: Rosuvastatin 20 MG TAB PO SCH (13:06)
[2020-08-18] MEDS: guaiFENesin ER 600 MG TAB PO SCH ×2 (13:07→21:12)
[2020-08-18] MEDS: Aspirin 81 mg Enteric Coated Tablet PO SCH (13:07)
[2020-08-18] MEDS: Gabapentin 400 MG CAP PO SCH ×2 (13:07→21:11)
[2020-08-18] MEDS: Clopidogrel Bisulfate 75 MG TAB PO SCH (13:07)
[2020-08-18] MEDS ORDERED: Morphine 4 MG/ML VIAL SLOW IVP PRN (14:02)
[2020-08-18] MEDS ORDERED: Morphine 2 MG/ML VIAL SLOW IVP PRN (14:59)
[2020-08-18] MEDS: cefTRIAXone\\ROCEPHIN 2 GM in Sodium Chloride 0.9% 100 ML IVPB SCH (15:30)
[2020-08-18] MEDS ORDERED: hydrALAZINE 20 MG/ML VIAL SLOW IVP PRN (16:42)
[2020-08-18] MEDS: Carvedilol 3.125 MG TAB PO SCH (17:20)
--- NOTE | 2020-08-18 17:41 | PDOC.HOSPP ---
- Subjective Subjective: s/p LHC with PCI, complaints of back pain. bradycardia, BB on hold. - Objective Vital Signs & Weight: Vital Signs (12 hours) Temp Pulse Resp BP Pulse Ox 08/18/20 17:07 51 L 08/18/20 15:27 97.6 F 51 L 16 161/71 H 92 L 08/18/20 14:43 49 L 20 93 L 08/18/20 12:15 97 08/18/20 12:00 54 L 18 143/63 H 95 08/18/20 07:16 95 Weight Weight 196 lb I&O: 08/17/20 08/18/20 08/19/20 06:59 06:59 06:59 Intake Total 230 720 647 Output Total 1200 2300 Balance 646 -937 -2743 Result Diagrams: 08/18/20 03:35 08/18/20 03:35 Additional Labs: Accuchecks 08/18/20 08/18/20 08/18/20 16:18 12:39 05:57 POC Glucose 247 H 229 H 354 H 08/17/20 19:43 POC Glucose 350 H Radiology Reviewed by me: Yes EKG Reviewed by me: Yes Hospitalist ROS - Medication Medications: Active Medications Generic Name Dose Route Start Last Admin Trade Name Freq PRN Reason Stop Dose Admin Albuterol/Ipratropium 3 ml 08/17/20 11:00 08/18/20 14:43 Ipratropium/Albuterol Sulfate 3 Ml Neb NEB 3 ml [id number] ÓSCAR Administration Alogliptin Benzoate 25 mg 08/18/20 09:00 08/18/20 13:06 Alogliptin 25 Mg Tab PO 25 mg DAILY ÓSCAR Administration Aspirin 81 mg 08/17/20 09:00 08/18/20 13:07 Aspirin 81 Mg Enteric Coated Tablet PO 81 mg DAILY ÓSCAR Administration Azithromycin 500 mg 08/17/20 09:00 08/18/20 13:06 Azithromycin 250 Mg Tab PO 500 mg DAILY ÓSCAR Administration Carvedilol 3.125 mg 08/18/20 17:00 08/18/20 17:20 Carvedilol 3.125 Mg Tab PO 3.125 mg BID-WM ÓSCAR Administration Clopidogrel Bisulfate 75 mg 08/18/20 09:00 08/18/20 13:07 Clopidogrel Bisulfate 75 Mg Tab PO 75 mg DAILY ÓSCAR Administration Ezetimibe 10 mg 08/18/20 09:00 08/18/20 13:06 Ezetimibe 10 Mg Tab PO 10 mg DAILY ÓSCAR Administration Famotidine 20 mg 08/17/20 21:00 08/18/20 13:06 Famotidine 20 Mg Tab PO 20 mg BID ÓSCAR Administration Gabapentin 400 mg 08/17/20 21:00 08/18/20 13:07 Gabapentin 400 Mg Cap PO 400 mg BID ÓSCAR Administration Guaifenesin 600 mg 08/17/20 21:00 08/18/20 13:07 Guaifenesin Er 600 Mg Tab PO 600 mg Q12HR ÓSCAR Administration Hydralazine HCl 20 mg 08/18/20 16:45 08/18/20 17:07 Hydralazine 20 Mg/Ml Vial SLOW IVP 08/18/20 18:45 Not Given NOW [facility] Hydralazine HCl 10 mg 08/18/20 16:42 08/18/20 17:20 Hydralazine 20 Mg/Ml Vial SLOW IVP 10 mg Q4H PRN Administration Persistent BP Elevations Ceftriaxone Sodium 2 gm/ 100 mls @ 200 mls/hr 08/17/20 15:00 08/18/20 15:30 Sodium Chloride IVPB 100 mls 1500 ÓSCAR Administration Insulin Human Lispro 0 units 08/16/20 16:32 08/18/20 17:20 Humalog 300 Units/3 Ml Vial SC 3 unit .MILD SLIDING SCALE PRN Administration Mild Correctional Scale Insulin Human Lispro 0 units 08/17/20 20:49 08/17/20 21:03 Humalog 300 Units/3 Ml Vial SC 4 unit .BEDTIME SLIDING SC PRN Administration Bedtime Correctional Scale Isosorbide Mononitrate 60 mg 08/17/20 21:00 08/17/20 20:07 Isosorbide Mononitrate Er 60 Mg Tab PO 60 mg HS ÓSCAR Administration Lisinopril 20 mg 08/17/20 21:00 08/18/20 12:13 Lisinopril 20 Mg Tab PO 20 mg BID ÓSCAR Administration Morphine Sulfate 2 mg 08/18/20 14:59 08/18/20 15:29 Morphine 2 Mg/Ml Vial SLOW IVP 2 mg Q4H PRN Administration Moderate to Severe Pain (6-10) Nifedipine 60 mg 08/17/20 21:00 08/18/20 12:14 Nifedipine Xl 60 Mg Tab PO 60 mg BID ÓSCAR Administration Rosuvastatin Calcium 20 mg 08/18/20 09:00 08/18/20 13:06 Rosuvastatin 20 Mg Tab PO 20 mg DAILY ÓSCAR Administration Sodium Chloride 10 ml 08/17/20 21:00 08/18/20 13:07 Flush - Normal Saline 10 Ml Syringe IVF Not Given Q12HR ÓSCAR Torsemide 20 mg 08/18/20 09:00 08/18/20 12:15 Torsemide 20 Mg Tab PO Not Given DAILY ÓSCAR Trazodone HCl 100 mg 08/17/20 21:00 08/17/20 20:06 Trazodone Hcl 50 Mg Tab PO 100 mg HS ÓSCAR Administration - Exam General Appearance: NAD Eye: PERRL ENT: normocephalic atraumatic Neck: supple Respiratory: CTAB Gastrointestinal: soft, non-tender Skin: normal turgor Neurological: cranial nerve grossly intact, normal sensation to touch Hosp A/P - Plan NSTEMI --s/p LHC with PCI, cont medical mgt. --BB on hold d/t bradycardia COPD exac --taper steroids, add nebs treatments, mucolytics. cont empiric IV abx. --COVID PCR neg CAD with history of PCI --Resume home medications Hypertension-BP stable --Continue home medications Diabetes type 2 --Resume home meds, BG exacerbated d/t steroids Tobacco dependent disorder --Counseled, nicotine patch Dyslipidemia --Continue statin therapy
[2020-08-18] MEDS: Mometasone 100 MCG/Formoterol 5 MCG 120 PUFF INHALER INH SCH (19:57)
[2020-08-18] MEDS: traZODone HCl 50 MG TAB PO SCH (21:12)
[2020-08-18] MEDS ORDERED: Nicotine 14 MG PATCH TD SCH (22:00)
[2020-08-19 04:51] LABS: #Lymphocytes 3.1 thou/uL (1.20-3.40); #Monocytes 0.4 thou/uL (0.11-0.59); %Basophils 0.1 % (0.0-1.0); %Eosinophils 0.1 % (0.0-10.0); %Lymphocytes 18.5 % (21.0-51.0); %Monocytes 2.6 % (0.0-10.0); %Neutrophils 78.7 % (42.0-75.0); Hemoglobin 13.8 g/dL (12.0-16.0); Mean Corpuscular Hemoglobin 28.7 pg (27.0-31.0); Mean Corpuscular Volume 89.4 fL (78.0-98.0); Mean Platelet Volume 9.3 fL (7.4-10.4); Platelet Count 215 thou/uL (130-400); RBC Distribution Width 14.6 % (11.5-14.5); Red Blood Cell (RBC) Count 4.83 mill/uL (4.20-5.40); White Blood Cell (WBC) Count 16.6 thou/uL (4.8-10.8)
[2020-08-19 05:12] LABS: ALT (SGPT) 27 U/L (8-55); AST (SGOT) 11 U/L (5-34); Albumin 3.9 g/dL (3.4-4.8); Alkaline Phosphatase 82 U/L (40-110); Anion Gap 15 mmol/L (10-20); BUN (Urea Nitrogen) 18 mg/dL (9.8-20.1); Bilirubin, Total 0.3 mg/dL (0.2-1.2); Calc. Creatinine Clearance 94 mL/min (70-130); Calcium 9.1 mg/dL (7.8-10.44); Carbon Dioxide 23 mmol/L (23-31); Chloride 103 mmol/L (98-107); Glucose 345 mg/dL (80-115); Potassium 4.5 mmol/L (3.5-5.1); Protein, Total 6.9 g/dL (6.0-8.3); Sodium 136 mmol/L (136-145)
[2020-08-19] MEDS: HumaLOG 300 UNITS/3 ML VIAL SC PRN ×2 (06:18→11:52)
[2020-08-19] MEDS: Mometasone 100 MCG/Formoterol 5 MCG 120 PUFF INHALER INH SCH (07:28)
[2020-08-19] MEDS: Ezetimibe 10 MG TAB PO SCH (09:30)
[2020-08-19] MEDS: Clopidogrel Bisulfate 75 MG TAB PO SCH (09:31)
[2020-08-19] MEDS: NIFEdipine XL 60 MG TAB PO SCH (09:31)
[2020-08-19] MEDS: Carvedilol 3.125 MG TAB PO SCH (09:31)
[2020-08-19] MEDS: Alogliptin 25 MG TAB PO SCH (09:31)
[2020-08-19] MEDS: Azithromycin 250 MG TAB PO SCH (09:31)
[2020-08-19] MEDS: Gabapentin 400 MG CAP PO SCH (09:31)
[2020-08-19] MEDS: Rosuvastatin 20 MG TAB PO SCH (09:31)
[2020-08-19] MEDS: Aspirin 81 mg Enteric Coated Tablet PO SCH (09:31)
[2020-08-19] MEDS: Torsemide 20 MG TAB PO SCH (09:32)
[2020-08-19] MEDS: methylPREDNISolone Sod Succ 40 MG VIAL IVP SCH (09:32)
[2020-08-19] MEDS: Lisinopril 20 MG TAB PO SCH (09:32)
[2020-08-19] MEDS: Famotidine 20 MG TAB PO SCH (09:32)
[2020-08-19] MEDS: guaiFENesin ER 600 MG TAB PO SCH (09:32)
--- NOTE | 2020-08-19 11:03 | PDOC.DS.DS ---
Provider - Provider Date of Admission: 08/17/20 16:01 Date of Discharge: 08/19/20 Admitting Provider: Randall Eldridge MD Consultations: Cardiology Primary Care Physician: Roderick Centeno Course - Hospital Course Hospital Course: DISCHARGE DIAGNOSES: 1. NSTEMI 2. COPD exacerbation 3. CAD with history of PCI 4. Hypertension 5. Diabetes type 2 6. Tobacco dependent disorder 7. Dyslipidemia PERTINENT IMAGING STUDIES: Chest x-ray: Borderline cardiomegaly stable. Mild vascular engorgement stable. CT of the brain: No acute intracranial process 2D echo: EF 55-60%. HISTORY OF PRESENT ILLNESS AND BRIEF HOSPITAL COURSE: Patient is a pleasant 70 years old female who has significant past medical history of extensive CAD with status post more of PCIs, COPD, congestive heart failure, diabetes type 2, who presented to the ED with complaint of short of breath, and chest discomfort. Patient took 3 sublingual nitro at home, did not help. Initial enzyme was 0.03, and peaked at 1.5. Cardiology was consulted. Patient subsequently underwent left heart cath, with PCI in the distal RCA. This is her fourth stent in this area. Patient was emphatic about not having a CABG, since he is expecting a in her family, her sister with terminal ileal cancer. At any rate, patient tolerated procedure well. She had no further symptoms after her heart cath. Patient was also treated for COPD exacerbation. Her steroid has been tapered. At this time, patient was cleared to discharge from cardiology standpoint. She will be discharged home with taper steroid, and complete the course of empiric antibiotic. She is on dual a ntiplatelet therapy, and other cardiac regimen. To follow-up with her PCP in 1 to 2 weeks, as well as her cardiology. PROCEDURE PERFORMED: Left heart cath: Three-vessel coronary artery disease. Mild impaired ventricular function. Successful PCI, drug-eluting stent of the distal RCA. DISCHARGE CONDITION: STABLE DISPOSITION: HOME PHYSICAL EXAM: General Appearance: Alert, oriented, resting comfortably, no apparent distress, well developed/nourished. HEENT: Normocephalic/atraumatic, moist mucous membrane, normal ENT inspection, normal tones. PERRLA, no scleral icterus, normal conjunctiva Neck: Supple, normal inspection, no JVD Respiratory: Lungs are clear bilaterally, normal breath sounds, no accessory muscle use Cardiovascular: Regular rate, regular rhythm, no murmur, no rubs Abdomen: Soft, nontender, nondistended, normal bowel sounds, no organomegaly, no guarding no rebound Extremities: No clubbing, no cyanosis, no edema Psych/Mental Status: Normal affect, speech, non-pressured, AAO x 3 Neurologic: CN II-XII are intact. Skin: Warm/Dry, Normal Color, no rashes DISCHARGE TIME SPENT: >30 MINUTES Resuscitation Status: 08/16/20 16:26 Resuscitation Status Routine Co-Sign Provider: Resuscitation Status: DNAR: NO Resuscitation Discussed with: pt and son - Labs Lab Results: 08/19/20 04:40 08/19/20 04:40 Abnormal Lab Results - Last 48 hrs 08/18/20 03:35: WBC 13.7 H, MCHC 31.4 L, Neutrophils % 77.5 H, Lymphocytes % 18.6 L, Neutrophils # 10.6 H 08/18/20 11:30: Activated Clotting Time 147 H 08/19/20 04:40: WBC 16.6 H, RDW 14.6 H, Neutrophils % 78.7 H, Lymphocytes % 18.5 L, Neutrophils # 13.0 H Microbiology - Entire Visit 08/16/20 15:12 Venous blood - Right Hand Blood Culture - Preliminary NO GROWTH AT 48 HOURS 08/16/20 15:12 Venous blood - Left Arm Blood Culture - Preliminary NO GROWTH AT 48 HOURS - Physical Exam Vitals: Vital Signs (12 hours) Temp Pulse Resp BP Pulse Ox 08/19/20 10:47 61 16 93 L 08/19/20 08:55 97.7 F 59 L 15 139/64 94 L 08/19/20 07:30 47 L 16 97 08/19/20 07:28 47 L 16 97 08/19/20 04:00 97.7 F 59 L 22 H 132/60 97 08/18/20 23:57 130/60 Weight Weight 202 lb 3.2 oz Physical Exam: The patient was seen and examined on the day of discharge. Plan - Discharge Medications Prescriptions: Nitroglycerin [Nitrostat] 0.4 mg SL Q5MIN PRN #30 tab PRN Reason: Chest Pain Carvedilol [Coreg] 3.125 mg PO BID-WM #60 tab hydrALAZINE HCl [Hydralazine HCl] 50 mg PO BID #60 tablet Nicotine [Nicotine Patch] 1 patch TD DAILY #30 patch.td24 Cefdinir [Omnicef] 300 mg PO BID #10 cap predniSONE [Prednisone] 10 mg PO DAILY #30 tablet Home Medications: Medication Instructions Recorded Confirmed Type Lisinopril [Zestril] 20 mg PO BID 05/26/15 08/17/20 History traZODone 100 mg PO HS 12/13/16 08/17/20 History Amlodipine [Norvasc] 10 mg PO DAILY tab 12/17/16 08/17/20 Rx Clopidogrel Bisulfate [Plavix] 75 mg PO DAILY tab 12/17/16 08/17/20 Rx Ranitidine HCl 1 tab PO BID 11/03/18 08/17/20 History Ondansetron [Zofran ODT] 4 mg PO Q4HR PRN #30 tab 11/04/18 08/17/20 Rx Aspirin 325 mg PO DAILY 08/17/20 08/17/20 History Ezetimibe [Zetia] 10 mg PO DAILY 08/17/20 08/17/20 History Gabapentin [Neurontin] 400 mg PO BID 08/17/20 08/17/20 History Glipizide/Metformin HCl 2 tablet PO BID-WM 08/17/20 08/17/20 History [glipiZIDE/metFORMIN HCl] Ipratropium/Albuterol Sulfate 3 ml NEB QID PRN 08/17/20 08/17/20 History Isosorbide Mononitrate [Isosorbide 60 mg PO HS 08/17/20 08/17/20 History Mononitrate ER] NIFEdipine [Procardia Xl] 60 mg PO BID 08/17/20 08/17/20 History Rosuvastatin [Crestor] 20 mg PO DAILY 08/17/20 08/17/20 History Torsemide 20 mg PO DAILY 08/17/20 08/17/20 History sitaGLIPtin Phosphate [Januvia] 100 mg PO DAILY 08/17/20 08/17/20 History Carvedilol [Coreg] 3.125 mg PO BID-WM #60 tab 08/19/20 Rx Cefdinir [Omnicef] 300 mg PO BID #10 cap 08/19/20 Rx Nicotine [Nicotine Patch] 1 patch TD DAILY #30 patch.td24 12/08/20 Rx Nitroglycerin [Nitrostat] 0.4 mg SL Q5MIN PRN #30 tab 08/19/20 Rx hydrALAZINE HCl [Hydralazine HCl] 50 mg PO BID #60 tablet 08/19/20 Rx predniSONE [Prednisone] 10 mg PO DAILY #30 tablet 08/19/20 Rx Allergies: hydromorphone Allergy (Severe, Verified 12/02/19 01:37) Nausea - Discharge Instructions Discharge Instructions:: Please continue to check your blood pressure and heart rate at home. Please keep a record of these numbers and bring with you to your next appointment. Nourishment:: Heart Healthy Diet - Follow up Plan Referrals: Cardiac Rehab - [place] [Outside] - 7 Days ( Your doctor has ordered outpatient cardiac rehab for you to begin within 1-2 weeks after you go home from the hospital. The location nearest to you is the [facility]. The front office in [place] will call you in 3-5 days to get you scheduled for your evaluation. If you do not receive a call, please reach out to them at [phone] and request an appointment. Should you have any trouble or need assistance, please call the cardiac rehab main line in [place] at [phone]) Ko Edward MD [Primary Care Provider] - 08/26/20 11:00 am Emelia Ayon MD [Active] - 3-4 Weeks (Please call office to schedule a follow up appointment with Dr. Ayon. Please bring your discharge paperwork and current home medications with you to your appointment. Please continue to check your blood pressure and heart rate at home.) Disposition: HOME Quality - Care Measures CORE MEASURES:: AMI
[2020-08-19 11:51] VITALS: TEMP 97.4
[2020-08-19 13:20] VITALS: BP 139/64
--- NOTE | 2020-08-21 15:36 | PQF ---
CLINICAL DOCUMENTATION CLARIFICATION FORM: Dear Dr. Pratt Date: 08/21/20 1220 Please exercise your independent, professional judgment in responding to the clarification form. Clinical indicators are provided on the bottom of this form for your review. Please check appropriate box(es): [X ] Acute Respiratory Failure: [ X ] with Hypoxia [ ] with Hypercapnia [ ] Acute On Chronic Respiratory Failure: [ ] with Hypoxia [ ] with Hypercapnia [ ] Acute Respiratory Failure due to: (etiology) [ ] Chronic Respiratory Failure only [ ] with Hypoxia [ ] with Hypercapnia [ ] Hypoxia [ ] Other diagnosis [ ] Unable to determine In addition, please specify: Present on Admission (POA): [ X ] Yes [ ] No [ ] Unable to determine For continuity of documentation, please document condition throughout progress notes and discharge summary. Thank You. To be completed by CDI/Coding staff for physician review: CLINICAL INDICATORS - SIGNS / SYMPTOMS / LABS / RESULTS AND LOCATION IN MR 90% 2l/NC// pt drops to 87% RA when off of O2// pt reports nausea, diaphoresis and shortness of breath at this time, pt reports increased exertional dyspnea for the past month. Pt reports that she does not usually require oxygen supplementation. (ED report) Nstemi, CAD w PCI, COPD exacerbation, Hypertension, Tobacco dependent disorder. Pt presented to the ED with complaint of short of breath. ( Discharge Summary / Le) 08/19 RISK FACTORS / RESULTS AND LOCATION IN MR COPD exacerbation, current smoker, NSTEMI (Consult /[facility]) 08/17 TREATMENTS / RESULTS AND LOCATION IN MR Supplemental Oxygen ( 08/16 08/18) Continuous Telemetry monitoring ( 08/16 - 08/19) Acute Respiratory Failure: ABG pH < 7.35 or > 7.45; Decreased oxygen saturation (<90% room air or < 95% on oxygen); PCO2 > 50 mm Hg; PO2 < 60 mm Hg; Labored or rapid respirations ARDS: Dx Criteria [[place] ARDS]: Respiratory symptoms within one week of a known clinical insult (e.g. shock, infection, surgery, trauma) Bilateral opacities in CXR/Chest CT not due to CHF or fluid THANK YOU! CDS Signature: Edie Magallanes RN Phone #: [phone] Date: 08/21/20 1530 This is a permanent part of the Medical Record [facility]
--- NOTE | 2020-08-22 06:09 | PQF ---
CLINICAL DOCUMENTATION CLARIFICATION FORM: Dear : Dorian Monte Date / Time: 08/22/20 0608 Please exercise your independent, professional judgment in responding to the clarification form. Clinical indicators are provided on the bottom of this form for your review In your clinical opinion based on clinical findings below, can you please specify type of NSTEMI if: Please check appropriate box(es): [ X ] Type 1 DC (NSTEMI) [ ] Type 2 DC (T2MI) secondary to AECOPD/Empysema [ ] Other diagnosis, please specify [ ] Unable to determine Physician Signature: Date/Time: For continuity of documentation, please document condition throughout progress notes and discharge summary. Thank You. To be completed by CDI/Coding staff for physician review: Present Clinical Indicators - Signs / Symptoms / Labs Results and Location in Medical Record [X] CK-MB 2.5, BNP 82.8, Troponin 0.033; 0.0782; 1.572 Laboratory 08/17 [X] BP 134/66, Pulse 88, Resp 16 Vital signs 08/17 [X] Compliant of chest tightness and SOB H&P p1 08/16 [place] CHANGE COORDINATOR-BC [X] Pain was 10 out of 10 H&P p1 08/16 [place] CHANGE COORDINATOR-BC [X] NSTEMI ? Type II secondary to COPD Exac HPN p3 Dr Monte 08/17 Present Risk Factors Results and Location in Medical Record [X] 70 year-old Female H&P p1 08/16 [place] CHANGE COORDINATOR-BC [X] CAD s/p stent H&P p1 08/16 [place] CHANGE COORDINATOR-BC [X] HTN H&P p1 08/16 [place] CHANGE COORDINATOR-BC [X] CHF H&P p1 08/16 [place] CHANGE COORDINATOR-BC [X] DM H&P p1 08/16 [place] CHANGE COORDINATOR-BC [X] Smoker H&P p1 08/16 [place] CHANGE COORDINATOR-BC [X] Emphysema H&P p1 08/16 [place] CHANGE COORDINATOR-BC [X] COPD Exacerbation H&P p1 08/16 [place] CHANGE COORDINATOR-BC [X] Obesity Consult 08/17 Present Treatments Results and Location in Medical Record [X] Aspirin 81 mg iral NOV 21 [X] Lovenox 80 mg sc NOV 21 [X] Nitroderm patch NOV 21 [X] Nitroglycerine 0.4 SL NOV 21 [X] JC with PTCA Cardiac Procedure 08/18 Dr Ham [X] Cardiac Consult Consult Dr Youngblood 08/17 CDS/Chief Marketing Officer Signature: Judie Meyer Rakelellynhelder Phone #: [phone] Date/Time: 08/22/2020 0608 This is a permanent part of the Medical Record [facility]
== END 2020-08-19 13:13 | disposition home or self-care (01) | DRG 246 ==
LOC: ERS 13:01 → INTOOBSV 15:38 → ERHOLD 15:38 → 2NO 08-17 03:39 → OBSVTOIN 08-17 16:01
PROVIDERS: ADMIT Internal Medicine; ATTEND Family Medicine
PROC: 027235Z Dilation of Coronary Artery, Three Arteries with Two Drug-eluting Intraluminal Devices, Percutaneous Approach (ICD-10-PCS; principal; 2020-08-18)
PROC: 4A023N7 Measurement of Cardiac Sampling and Pressure, Left Heart, Percutaneous Approach (ICD-10-PCS; 2020-08-18)
PROC: 3E03317 Introduction of Other Thrombolytic into Peripheral Vein, Percutaneous Approach (ICD-10-PCS; 2020-08-18)
PROC: B2111ZZ Fluoroscopy of Multiple Coronary Arteries using Low Osmolar Contrast (ICD-10-PCS; 2020-08-18)
PROC: B2151ZZ Fluoroscopy of Left Heart using Low Osmolar Contrast (ICD-10-PCS; 2020-08-18)
DX: I21.4 Non-ST elevation (NSTEMI) myocardial infarction (principal); J96.01 Acute respiratory failure with hypoxia; Z66 Do not resuscitate; J43.9 Emphysema, unspecified; I25.10 Atherosclerotic heart disease of native coronary artery without angina pectoris; Z20.828 Contact with and (suspected) exposure to other viral communicable diseases; E11.9 Type 2 diabetes mellitus without complications; E78.5 Hyperlipidemia, unspecified; F17.210 Nicotine dependence, cigarettes, uncomplicated; I50.9 Heart failure, unspecified; I11.0 Hypertensive heart disease with heart failure; E66.9 Obesity, unspecified; E78.00 Pure hypercholesterolemia, unspecified; F32.9 Major depressive disorder, single episode, unspecified; R00.1 Bradycardia, unspecified; Z23 Encounter for immunization; Z95.5 Presence of coronary angioplasty implant and graft; Z90.710 Acquired absence of both cervix and uterus; Z88.8 Allergy status to other drugs, medicaments and biological substances; Z68.34 Body mass index [BMI] 34.0-34.9, adult; Z79.899 Other long term (current) drug therapy; Z79.02 Long term (current) use of antithrombotics/antiplatelets; Z79.82 Long term (current) use of aspirin; Z79.84 Long term (current) use of oral hypoglycemic drugs
CPT/HCPCS: 36415; 36416; 70450; 71045; 76942; 80048; 80053; 80061; 82553; 83735; 83880; 84484; 85025; 85347; 85379; 87040; 92928; 92977; 93005; 93010; 93306; 93458; 93798; 94640; 94760; 96365; 96372; 96374; 96375; 96376; 99152; 99153; C1874; C9600; G0378; J0360; J0461; J0583; J0696; J1644; J1650; J2250; J2270; J2920; J2930; J3010; J3490; J7620; Q9967; U0002